=== PATIENT | female | born 1980 | race Caucasian/White ===

== ENCOUNTER 2020-12-09 16:50 | Emergency (ER) | payer OTHER ==
[2020-12-09 17:06] VITALS: BP 130/88
[2020-12-09] MEDS ORDERED: FLUoxetine 10 MG CAPSULE PO STA (17:21)
[2020-12-09] MEDS ORDERED: LORazepam 1 MG TABLET PO STA (17:21)
--- NOTE | 2020-12-09 17:24 | ED Physician Documentation ---
History of Present Illness - Stated complaint Stated Complaint: PANIC ATTACKS - Chief complaint Chief Complaint: Neuro - History obtained from History obtained from: Patient - Additonal information Additional information: 40-year-old woman with chronic anxiety, much worse over the last week and a half. She feels like getting her first Covid shot set something off and her neurologic system and since then has had a lot of panic attacks that she cannot control. She saw her physician and was put on all which she feels like makes her worse. No SI/HI. Review of Systems Constitutional: reports: Reviewed and negative Ears: reports: Reviewed and negative Nose: reports: Reviewed and negative Throat: reports: Reviewed and negative Cardiac: reports: Reviewed and negative Respiratory: reports: Reviewed and negative PD PAST MEDICAL HISTORY - Present Medications Home Medications: Ambulatory Orders Medication Instructions Recorded Confirmed FLUoxetine [PROzac] 10 mg PO DAILY #30 12/09/20 LORazepam [Ativan] 1 mg PO TID PRN #12 tablet 12/09/20 - Allergies Allergies/Adverse Reactions: Allergies Allergy/AdvReac Type Severity Reaction Status Date / Time No Known Drug Allergies Allergy Verified 12/09/20 17:06 PD ED PE NORMAL - Vitals Vital signs reviewed: Yes - General General: Alert and oriented X 3, No acute distress - Neuro Neuro: Alert and oriented X 3, Normal speech - Psych Psych: Normal mood, Normal affect Results - Vitals Vitals: Vital Signs - 24 hr 12/09/20 16:57 Temperature 36.6 C Heart Rate 96 Respiratory 18 Rate Blood Pressure 130/88 H O2 Saturation 100 Oxygen O2 Source Room air PD MEDICAL DECISION MAKING - ED course ED course: 40-year-old woman with an exacerbation of chronic anxiety much worse over the last week and a half with frequent panic attacks. We discussed options and after discussion of risks benefits and side effects she would like to start some Prozac but also some as needed benzodiazepine in the meantime while we are waiting for that to come to full effect. She understands that benzodiazepines are not a good long-term option for anxiety and that she would need to seek out a counselor as well. Departure - Departure Disposition: 01 Home, Self Care Clinical Impression: Anxiety Condition: Good Record reviewed to determine appropriate education?: Yes Instructions: ED Panic Attack Prescriptions: LORazepam [Ativan] 1 mg PO TID PRN #12 tablet PRN Reason: Anxiety FLUoxetine [PROzac] 10 mg PO DAILY #30 Comments: As discussed, benzodiazepines such as Ativan or not a good long-term option but can be used in the short-term for when your anxiety is particularly bad. Do not drink or drive with them. Follow-up with your doctor in a week or 2 to see how its going and for refills of the Prozac. Also advised starting with counseling. Return for new or worsening symptoms.
== END 2020-12-09 17:36 | disposition home or self-care (01) ==
LOC: ED 16:50
DX: F41.9 Anxiety disorder, unspecified (principal)
CPT/HCPCS: 99282; 99283; A9270

== ENCOUNTER 2020-12-17 14:44 | Outpatient (CLI) | payer OTHER ==
[2020-12-17 18:27] LABS: BASOPHILS % (AUTO) 0.7 %; EOSINOPHILS # (AUTO) 0.1 10^3/uL (0.0-0.7); EOSINOPHILS % (AUTO) 0.8 %; HCT - HEMATOCRIT 42.9 % (37.0-47.0); LYMPHOCYTES # (AUTO) 1.2 10^3/uL (1.5-3.5); LYMPHOCYTES % (AUTO) 19.8 %; MEAN CORPUSCULAR HEMOGLOBIN 29.7 pg (27.0-31.0); MEAN CORPUSCULAR HGB CONC 32.6 g/dL (32.0-36.0); MEAN CORPUSCULAR VOLUME 90.9 fL (81.0-99.0); MONOCYTES # (AUTO) 0.5 10^3/uL (0.0-1.0); MONOCYTES % (AUTO) 7.9 %; NEUTROPHILS # (AUTO) 4.3 10^3/uL (1.5-6.6); NEUTROPHILS % (AUTO) 70.5 %; PLT - PLATELET COUNT 154 10^3/uL (130-450); RED BLOOD COUNT 4.72 10^6/uL (4.20-5.40); RED CELL DISTRIBUTION WIDTH 13.1 % (12.0-15.0); WHITE BLOOD COUNT 6.1 x10^3/uL (4.8-10.8)
[2020-12-17 18:39] LABS: ALBUMIN 4.8 g/dL (3.2-5.5); ALBUMIN/GLOBULIN RATIO 1.4 (1.0-2.2); BILIRUBIN,TOTAL 0.9 mg/dL (0.2-1.0); CALCIUM 9.8 mg/dL (8.5-10.3); CREATININE 0.7 mg/dL (0.4-1.0); POTASSIUM 3.6 mmol/L (3.5-5.0); TOTAL PROTEIN 8.2 g/dL (6.7-8.2)
[2020-12-17 18:54] LABS: THYROID STIMULATING HORMONE 2.74 uIU/mL (0.34-5.60)
[2020-12-21 18:36] LABS: EBV VIRAL CAPSID AB VCA IGM <36.00 U/mL
== END 2020-12-17 14:45 | disposition home or self-care (01) ==
LOC: LAB.S 14:44
PROVIDERS: ATTEND Nurse Practitioner Family
DX: B27.00 Gammaherpesviral mononucleosis without complication (principal); F41.8 Other specified anxiety disorders
CPT/HCPCS: 36415; 80053; 81599; 84443; 85025; 86664; 86665